=== PATIENT | female | born 1950 | race Caucasian/White ===

== ENCOUNTER 2016-06-04 10:18 | Inpatient (IN) | payer MEDICARE, BC ==
--- NOTE | ~2016-06-04 | DS ---
Discharge Summary [facility] [address] [place]. [address] NAME: INGRID KELLOGG : 52 STATUS : DIS IN PAT#: [id number] AGE: 65 ADM/REG DATE : 06/04/16 MR#: [id number] REPORT SERV DATE: 06/08/16 DICTATED BY: DATE: REPORT STATUS : Draft TRANSCRIBED BY: MODL DATE: 06/07/16 ADMISSION DATE: 06/04/2016 DISCHARGE DATE: 06/07/2016 DISCHARGE DIAGNOSES: 1. Confusion, transient, improved. 2. Word-finding difficulty/delayed verbal response, improved. 3. Chronic fatigue and weakness. 4. Type 2 diabetes mellitus. 5. Myelodysplastic syndrome. 6. Hypothyroidism. 7. Cirrhosis/fatty liver. 8. Obstructive sleep apnea. No continuous positive airway pressure since weight gain. 9. Depression. Remeron discontinued secondary to confusion. 10.Anorexia. CONSULTATIONS: Dr. Carson Moulton, [facility]. PERTINENT TESTS AND PROCEDURES: 1. CT of brain without contrast, 06/04/2016; impression, negative noncontrast CT exam of the brain. 2. Urinalysis, urine collected, 06/04/2016, result, negative. CHIEF COMPLAINT UPON ADMISSION: Confusion, weakness, and falls status post cycle 3 of chemotherapy. HOSPITAL COURSE: Please refer to history and physical dated 06/04/2016 provided by me for complete details of the patient's initial presentation upon admission and health history. Briefly, the patient is a 65-year-old female, who is under the outpatient care of Dr. Carson Moulton for management and treatment of MDS, transfusion-dependent. The patient presented to Dr. Moulton's office on 06/04 with complaints of four to five falls on the morning of admission in addition to word finding and verbal expression difficulty. The patient's spouse also reported the patient was experiencing transient confusion to include disorientation to time. The patient was referred for direct admission for further evaluation and treatment of worsening neurologic symptoms, status post chemotherapy. 1. Confusion, transient. This has improved since admission. Cause is most likely multifactorial to include side effect of chemotherapy, chronically low hemoglobin, and Ativan given routinely as a premed prior to blood transfusions. The patient also had recent delirium that was associated with Remeron that was initiated to treat depression. That medication has since been discontinued prior to this admission with noticeable improvement in mental state. Otherwise, no definitive source was identified during this admission. 2. Word-finding difficulty with delayed verbal response. Diagnostic workup included urinalysis and CT of brain, which were negative for acute processes. The patient's Discharge Summary [address] [address] NAME: INGRID KELLOGG : 52 STATUS : DIS IN PAT#: [id number] AGE: 65 ADM/REG DATE : 06/04/16 MR#: [id number] REPORT SERV DATE: 06/08/16 DICTATED BY: DATE: REPORT STATUS : Draft TRANSCRIBED BY: MODL DATE: 06/07/16 ammonia level was normal at 24. During this admission, the symptoms have continued to improve and are most noticeable after the patient is premedicated for blood transfusions. This is most likely multifactorial to include side effects of medication and history of depression. 3. Fatigue/weakness. This is chronic and most likely multifactorial to include possible side effects of chemotherapy, poor nutrition, depression, and sedentary lifestyle. Physical therapy was consulted for evaluation and treatment. The patient received extensive instructions on home for safety measures to assist in reducing fall risk. The patient was also provided with a rolling walker upon discharge and will have home healthcare physical therapy starting tomorrow. 4. MDS/transfusion-dependent. Upon admission, the patient's hemoglobin was reported to be 6.3. The patient received several units of packed red blood cells between admission date and day of discharge. The hemoglobin is now 7.2. The patient will follow up with Dr. Carson Moulton on Tuesday for further lab work. Platelets were reported to be 6 upon admission. The patient received one unit of platelets and count juliano to 15; however next morning, count returned below 10 and was reported to be 8. The patient's platelet count was 13 today status post transfusion yesterday. Oncology ordered one more unit of platelets to be given before discharge. The patient has no active signs or symptoms of bleeding. 5. Hypothyroidism. TSH and free T4 were checked during this admission. TSH was reported to be 2.950 and free T4 reported to be 1.3 for medication to be managed per primary care physician. 6. Type 2 diabetes mellitus. The patient's home medication is Victoza 1.8 mg subcu every morning. This medication was discontinued upon admission and the patient received Levemir 20 units subcu at bedtime, NovoLog 5 units before meals and at bedtime, and sliding scale level 3. The patient's blood glucoses have been elevated during this hospitalization secondary to the premedication prior to blood transfusions to include methylprednisolone 40 mg IV. The patient and her spouse were educated on recent hyperglycemic events and were instructed to check the patient's blood glucose three times daily and record and log. Instructions included contacting primary care provider if blood glucose is persistently remaining above 250 with return of home medication regimen. The patient indicated she did not want to add any additional diabetic medications to her home regimen at discharge. 7. Cirrhosis/fatty liver. The patient follows up outpatient with tufting supervisor at [facility]. 8. Obstructive sleep apnea. The patient has not been CPAP dependent since weight loss. 9. Depression. The patient recently tried a trial dose of Remeron, however, this was discontinued due to delirium. The patient affect has remained stable and there was no indication for psych consult during this admission. 10.Anorexia. This is related to disease process and treatment and possibly depression. The patient was educated to drink Glucerna nutritional supplement shakes two to three times daily as tolerated. DISCHARGE CONDITION: At the time of discharge, the patient was hemodynamically stable. DISCHARGED DIET: 2000 calorie ADA diet. Discharge Summary [address] [address] NAME: INGRID KELLOGG : 52 STATUS : DIS IN PAT#: [id number] AGE: 65 ADM/REG DATE : 06/04/16 MR#: [id number] REPORT SERV DATE: 06/08/16 DICTATED BY: DATE: REPORT STATUS : Draft TRANSCRIBED BY: MODL DATE: 06/07/16 DISCHARGE MEDICATIONS: 1. Levothyroxine 150 mcg tablet p.o. daily. 2. Jadenu 360 mg tablet p.o. daily. 3. Victoza 1.8 mg subcu every morning. 4. Tramadol 50 mg every four hours as needed. 5. Zofran 8 mg tablet every six hours as needed. DISCHARGE INSTRUCTIONS: 1. Follow up with Dr. Carson Moulton at [facility], 06/09/2016. 2. Follow up with primary care physician as needed for management of type 2 diabetes mellitus with hyperglycemia. 3. The patient and her were instructed to return to the emergency department for any acute onset of neurological change resulting in altered mental status, slurred speech, focal weakness, or syncopal/near-syncopal episodes. The patient was also instructed to monitor blood glucose daily and to contact primary care physician immediately if blood glucose is consistently running above 250. PRIMARY ONCOLOGIST: Dr. Carson Moulton, [facility]. JWH/MODL Megan Soliz NP-C / [id number] CC: MD Leigh Johnson II, M.D. Davey B. Daniel, M.D.
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
[~2016-06-04 10:18] MED LIST: AMARYL1 MG PO; AVAP150 PO; AVAPRO75 PO; JADENU PO; LEVOTHYROXIN125 MCG PO; LEVOTHYROXIN137 MCG PO; LEVOXYL137 MCG PO; MULTIVIT/MIN PO; MULTIVITAMI1 PO; T PO; VICTOZA18 MG/3 ML SC; VIDAZA IV; VITAMIN D2000 UNIT PO; VITE PO; VYTORIN 10/40 T1 TAB PO; WELLXL150 PO
[2016-06-04 12:58] LABS: MEAN CORPUS HGB CONC 32.8 g/dL (32.0-36.0); MEAN CORPUSCULAR HEMOGLOB 29.6 pg (26.0-34.0); RED CELL COUNT 2.13 10/6/uL (4.0-5.6)
[2016-06-04 13:01] LABS: WHITE BLOOD CELLS 0.9 10/3/uL (4.5-10.5)
[2016-06-04 13:02] LABS: HEMATOCRIT 19.2 % (36.0-48.0); HEMOGLOBIN 6.3 g/dL (12.0-16.0); MANUAL DIFF YES %; MEAN CORPUSCULAR VOLUME 90.1 fL (80-100); PLATELET COUNT 6 10/3/uL (150-400); RBC DISTRIBUTION WIDTH 13.7 % (12.0-16.0)
[2016-06-04 13:20] LABS: A/G RATIO 1.2 (0.7-1.9); ALBUMIN 2.9 G/DL (3.5-5.0); ALKALINE PHOSPHATASE 72 U/L (45-117); BUN (BLOOD UREA NITROGEN) 22 MG/DL (6-23); CALCIUM, SERUM 8.4 MG/DL (8.5-10.4); CHLORIDE, SERUM 105 MMOL/L (96-112); CO2 (CARBON DIOXIDE) 29 MMOL/L (24-34); CREATININE 0.97 MG/DL (0.55-1.02); FREE T4 1.34 NG/DL (0.76-1.46); GFR AFRICAN AMERICAN 72 ML/MIN (>=60); GFR NON AFRICAN AMERICAN 62 ML/MIN (>=60); GLOBULIN 2.4 G/DL (2.5-4.1); GLUCOSE, SERUM 269 MG/DL (60-99); PHOSPHORUS, SERUM 2.8 MG/DL (2.5-4.5); POTASSIUM, SERUM 4.3 MMOL/L (3.5-5.3); SGOT(AST) 65 U/L (5-40); SGPT(ALT) 152 U/L (5-65); SODIUM, SERUM 141 MMOL/L (135-148); TOTAL BILIRUBIN 2.8 MG/DL (0-1.2); TOTAL PROTEIN 5.3 G/DL (6.0-8.5)
[2016-06-04 13:33] LABS: LYMPHOCYTES 49 %; LYMPHOCYTES ABSOLUTE (CALC) 0.44 10/3/uL (0.67-4.30); MONOCYTES 3 %; MONOCYTES ABSOLUTE (CALC) 0.03 10/3/uL (0.21-1.20); NEUTROPHILS ABSOLUTE (CALC) 0.43 10/3/uL (2.02-8.40); SEGMENTED NEUTROPHIL (0) 48 %; TOTAL NUCLEATED CELLS 100
[2016-06-04 13:34] LABS: RBC MORPHOLOGY NORM (NORMAL)
[2016-06-04 14:51] LABS: GLYCOHEMOGLOBIN (HbA1c) 7.9 % (4.7-6.1)
[2016-06-04 14:59] LABS: WBC (NOT ORDERED) (RFLEX) 0 (0-5)
[2016-06-04 15:19] LABS: ASCORBIC ACID (UR NOT ORDER) NEG (NEG); BILIRUBIN, URINE NEGATIVE (NEG); KETONE, URINE NEGATIVE (NEG); LEUKOCYTE ESTERASE(NOT OR NEG (NEG)
[2016-06-04] MEDS ORDERED: ZOFRAN8 PO (15:53)
[2016-06-04] MEDS ORDERED: ULTRAM50 PO (15:53)
[2016-06-05 06:17] LABS: RBC DISTRIBUTION WIDTH 14.1 % (12.0-16.0); RED CELL COUNT 2.17 10/6/uL (4.0-5.6)
[2016-06-05 06:19] LABS: HEMATOCRIT 18.7 % (36.0-48.0); HEMOGLOBIN 6.5 g/dL (12.0-16.0); WHITE BLOOD CELLS 0.7 10/3/uL (4.5-10.5)
[2016-06-05 06:20] LABS: MANUAL DIFF YES %; MEAN CORPUS HGB CONC 34.8 g/dL (32.0-36.0); MEAN CORPUSCULAR VOLUME 86.2 fL (80-100); PLATELET COUNT 15 10/3/uL (150-400)
[2016-06-05 06:27] LABS: CALCIUM, SERUM 8.7 MG/DL (8.5-10.4); CHLORIDE, SERUM 102 MMOL/L (96-112); CO2 (CARBON DIOXIDE) 31 MMOL/L (24-34); CREATININE 1.06 MG/DL (0.55-1.02); GFR AFRICAN AMERICAN 64 ML/MIN (>=60); GFR NON AFRICAN AMERICAN 55 ML/MIN (>=60); GLUCOSE, SERUM 290 MG/DL (60-99); POTASSIUM, SERUM 4.3 MMOL/L (3.5-5.3); SODIUM, SERUM 143 MMOL/L (135-148)
[2016-06-05 06:29] LABS: BUN (BLOOD UREA NITROGEN) 28 MG/DL (6-23)
[2016-06-05 07:00] LABS: LYMPHOCYTES 30 %; LYMPHOCYTES ABSOLUTE (CALC) 0.21 10/3/uL (0.67-4.30); NEUTROPHILS ABSOLUTE (CALC) 0.49 10/3/uL (2.02-8.40); RBC MORPHOLOGY NORM (NORMAL); SEGMENTED NEUTROPHIL (0) 70 %; TOTAL NUCLEATED CELLS 100
[2016-06-06 06:24] LABS: MEAN CORPUS HGB CONC 35.4 g/dL (32.0-36.0); MEAN CORPUSCULAR VOLUME 84.8 fL (80-100); RBC DISTRIBUTION WIDTH 14.1 % (12.0-16.0)
[2016-06-06 06:25] LABS: HEMATOCRIT 19.5 % (36.0-48.0); HEMOGLOBIN 6.9 g/dL (12.0-16.0); PLATELET COUNT 8 10/3/uL (150-400); WHITE BLOOD CELLS 0.9 10/3/uL (4.5-10.5)
[2016-06-06 06:26] LABS: MANUAL DIFF YES %
[2016-06-06 06:32] LABS: BUN (BLOOD UREA NITROGEN) 30 MG/DL (6-23); CALCIUM, SERUM 8.8 MG/DL (8.5-10.4); CHLORIDE, SERUM 103 MMOL/L (96-112); CO2 (CARBON DIOXIDE) 32 MMOL/L (24-34); CREATININE 1.01 MG/DL (0.55-1.02); GFR AFRICAN AMERICAN 68 ML/MIN (>=60); GFR NON AFRICAN AMERICAN 59 ML/MIN (>=60); POTASSIUM, SERUM 4.1 MMOL/L (3.5-5.3); SODIUM, SERUM 143 MMOL/L (135-148)
[2016-06-06 06:33] LABS: GLUCOSE, SERUM 218 MG/DL (60-99)
[2016-06-06 07:20] LABS: LYMPHOCYTES 50 %; LYMPHOCYTES ABSOLUTE (CALC) 0.44 10/3/uL (0.67-4.30); NEUTROPHILS ABSOLUTE (CALC) 0.46 10/3/uL (2.02-8.40); SEGMENTED NEUTROPHIL (0) 45 %; TOTAL NUCLEATED CELLS 100
[2016-06-06 07:21] LABS: BAND NEUTROPHILS 3 %; MONOCYTES 2 %; RBC MORPHOLOGY NORM (NORMAL)
[2016-06-07 06:28] LABS: HEMOGLOBIN 7.2 g/dL (12.0-16.0); MEAN CORPUSCULAR HEMOGLOB 28.5 pg (26.0-34.0); MEAN CORPUSCULAR VOLUME 86.2 fL (80-100); MEAN PLATELET VOLUME 10.3 fL (9.2-13.0); RBC DISTRIBUTION WIDTH 14.5 % (12.0-16.0); RED CELL COUNT 2.53 10/6/uL (4.0-5.6)
[2016-06-07 06:29] LABS: HEMATOCRIT 21.8 % (36.0-48.0); MANUAL DIFF YES %; PLATELET COUNT 13 10/3/uL (150-400); WHITE BLOOD CELLS 0.8 10/3/uL (4.5-10.5)
[2016-06-07 06:43] LABS: BUN (BLOOD UREA NITROGEN) 34 MG/DL (6-23); CALCIUM, SERUM 8.8 MG/DL (8.5-10.4); CHLORIDE, SERUM 101 MMOL/L (96-112); CO2 (CARBON DIOXIDE) 32 MMOL/L (24-34); CREATININE 0.99 MG/DL (0.55-1.02); GFR AFRICAN AMERICAN 70 ML/MIN (>=60); GFR NON AFRICAN AMERICAN 60 ML/MIN (>=60); GLUCOSE, SERUM 232 MG/DL (60-99); SODIUM, SERUM 144 MMOL/L (135-148)
[2016-06-07 06:58] LABS: BAND NEUTROPHILS 2 %; LYMPHOCYTES 62 %; MONOCYTES 2 %; MONOCYTES ABSOLUTE (CALC) 0.02 10/3/uL (0.21-1.20); NEUTROPHILS ABSOLUTE (CALC) 0.29 10/3/uL (2.02-8.40); SEGMENTED NEUTROPHIL (0) 34 %; TOTAL NUCLEATED CELLS 50
[2016-06-07 06:59] LABS: POLYCHROMASIA 1+ (2-5/OIF) (0-1/OIF)
== END 2016-06-07 18:45 | disposition home health service (06) | DRG 917 ==
LOC: 4EA 10:18
PROVIDERS: Nurse Practitioner Family
PROC: 30233N0 Transfusion of Autologous Red Blood Cells into Peripheral Vein, Percutaneous Approach (ICD-10-PCS; principal; 2016-06-07)
DX: T43.025A Adverse effect of tetracyclic antidepressants, initial encounter (principal); D61.810 Antineoplastic chemotherapy induced pancytopenia; K74.60 Unspecified cirrhosis of liver; D46.9 Myelodysplastic syndrome, unspecified; I10 Essential (primary) hypertension; E11.9 Type 2 diabetes mellitus without complications; E03.9 Hypothyroidism, unspecified; G47.33 Obstructive sleep apnea (adult) (pediatric); F32.9 Major depressive disorder, single episode, unspecified; Z66 Do not resuscitate
CPT/HCPCS: 36415; 70450; 80048; 80053; 81001; 82140; 82962; 83036; 83735; 84100; 84439; 84443; 85025; 86850; 86900; 86901; 86920; 97162-GP; A9270-GY; G8978-CK-GP; G8979-CJ-GP; J2920; P9037; P9040

== ENCOUNTER 2016-07-12 10:14 | Inpatient (IN) | payer MEDICARE, BC ==
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
--- NOTE | ~2016-07-12 | DS ---
Discharge Summary [facility] [address] [place]. [address] NAME: INGRID KELLOGG : 52 STATUS : DIS IN PAT#: [id number] AGE: 66 ADM/REG DATE : 07/13/16 MR#: [id number] REPORT SERV DATE: 07/20/16 DICTATED BY: DATE: REPORT STATUS : Draft TRANSCRIBED BY: MODL DATE: 07/16/16 ADMISSION DATE: 07/12/2016 DISCHARGE DATE: 07/16/2016 DISCHARGE DIAGNOSES: 1. Myelodysplastic syndrome. 2. Pancytopenia/neutropenia. 3. Increased liver enzymes. 4. Chronic transient confusion. 5. Type 2 diabetes. 6. Moderate malnutrition. CONSULTATIONS: Dr. Carson Moulton, [facility]. PERTINENT TESTS AND PROCEDURES: 1. Urinalysis specimen collected 07/14/2016, result negative. 2. 7 units packed red blood cells and 3 units of platelets transfused during this admission. CHIEF COMPLAINT UPON ADMISSION: Increased confusion and shortness of breath with ambulation. Briefly, the patient is a 66-year-old female with a history of a myelodysplastic syndrome transfusion dependent, type 2 diabetes, cirrhosis of the liver/fatty infiltration, overload, and chronic transient confusion. The patient presented to [facility]'s office on 07/12/2016 for followup visit. Laboratory data reported hemoglobin of 4.1 and hematocrit of 12.0 with a platelet count of 2. The patient was referred to [facility] for direct admission. She received three units of packed red blood cells and one unit of platelets. During this admission, the patient had decreased favorable response to transfusions with unclear etiology. The patient received a total of 7 units packed red blood cells and 3 units of platelets during this admission. At this time, hemoglobin and hematocrit are stable. The patient received one unit of platelets just prior to discharge today and labs will be recheck on Tuesday at [facility]. 1. Myelodysplastic syndrome. Upon admission, the patient's hemoglobin was reported to be 3.3. The patient received 3 units of packed red blood cells; however, hemoglobin increased only moderately to 5.6. The patient received a total of 7 units packed red blood cells during this admission, and at the time of discharge, hemoglobin and hematocrit are stable at 7.8 and 22.6. The patient is transfusion dependent, however, had a decreased favorable response to transfusions during this admission. There was no evidence of hemolysis and direct Akosua test was negative. Concern for decreased response to azacitidine. Bone marrow biopsy was obtained on 07/15/2016 for evaluation for AML or other changes. Preliminary verbal report was called to Dr. Carson Moulton at [facility], which noted no leukemia. The patient will follow up with Dr. Carson Moulton on 07/19/2016, for further evaluation and labs. Discharge Summary [address] [address] NAME: INGRID KELLOGG : 52 STATUS : DIS IN PAT#: [id number] AGE: 66 ADM/REG DATE : 07/13/16 MR#: [id number] REPORT SERV DATE: 07/20/16 DICTATED BY: DATE: REPORT STATUS : Draft TRANSCRIBED BY: MODL DATE: 07/16/16 2. Pancytopenia/neutropenia. The patient's white blood count has remained between 0.5 and 0.9 during this admission. Absolute neutrophil count 200. This is secondary to myelodysplastic syndrome and also likely related to side affects of azacitidine. The patient will continue to receive transfusions as needed on an outpatient basis managed by [facility]. 3. Increased liver enzymes. This is multifactorial to include history of cirrhosis and fatty liver infiltration and iron overload. Continue home dose of Jadenu. 4. Chronic transient confusion. This is multifactorial to include chronically low hemoglobin requiring multiple transfusions. Urinalysis was negative for infection. Upon discharge, the patient was more awake, alert, and oriented x3 and exhibited improvement with word-finding difficulty. 5. Type 2 diabetes. Blood glucose has remained controlled. Continue current home regimen. 6. Moderate malnutrition. This is secondary to chronic illness. The patient and her family members were educated on benefits related to consuming 4 to 6 very small meals with calorie fortification throughout each day. In addition to nutritional shakes three times daily, continue Marinol and antiemetics as needed. DISCHARGE CONDITION: At the time of discharge, the patient is hemodynamically stable. DISCHARGE DIET: Regular diet with nutritional shake supplementation three times daily. DISCHARGE MEDICATIONS: 1. Marinol 2.5 mg tablet p.o. twice daily. 2. Jadenu 360 mg tablet p.o. daily. 3. Levothyroxine 137 mcg p.o. daily. 4. MiraLAX 17 g p.o. daily, hold for diarrhea. 5. Tylenol 325 mg tablet, take two tablets p.o. every four hours as needed. 6. Zofran 8 mg tablet p.o. every six hours as needed. 7. Ultram 50 mg tablet p.o. every four hours as needed. 8. Victoza 1.8 mg subcu every morning. DISCHARGE INSTRUCTIONS: Follow up with Dr. Carson Moulton's office on 07/20/2016, for labs. The patient and her family members were instructed to monitor the patient closely for signs and symptoms of low hemoglobin to include increased shortness of breath, dyspnea on exertion, and extreme fatigue. The patient was also educated on monitoring closely for signs and symptoms of bleeding in the setting of low platelets. The patient and family advised to return to the emergency room for any deviations in health state as compared to baseline at the time of discharge. ZIGGY/ASHLEY Megan Soliz NP-C Discharge Summary [address] [address] NAME: INGRID KELLOGG : 52 STATUS : DIS IN PAT#: [id number] AGE: 66 ADM/REG DATE : 07/13/16 MR#: [id number] REPORT SERV DATE: 07/20/16 DICTATED BY: DATE: REPORT STATUS : Draft TRANSCRIBED BY: ASHLEY DATE: 07/16/16 / [id number] CC: MD THAIS Johnson II, KIMBERLY
[~2016-07-12 10:14] MED LIST changes: +ULTRAM50 PO; +ZOFRAN8 PO
[2016-07-12 12:55] LABS: MEAN CORPUS HGB CONC 33.3 g/dL (32.0-36.0); MEAN CORPUSCULAR HEMOGLOB 29.5 pg (26.0-34.0); MEAN CORPUSCULAR VOLUME 88.4 fL (80-100); RBC DISTRIBUTION WIDTH 14.3 % (12.0-16.0); RED CELL COUNT 1.12 10/6/uL (4.0-5.6); WHITE BLOOD CELLS 0.5 10/3/uL (4.5-10.5)
[2016-07-12 12:56] LABS: HEMATOCRIT 9.9 % (36.0-48.0); HEMOGLOBIN 3.3 g/dL (12.0-16.0); MANUAL DIFF YES %; PLATELET COUNT 2 10/3/uL (150-400)
[2016-07-12 13:12] LABS: A/G RATIO 1.3 (0.7-1.9); ALBUMIN 3.2 G/DL (3.5-5.0); ALKALINE PHOSPHATASE 71 U/L (45-117); CHLORIDE, SERUM 104 MMOL/L (96-112); CO2 (CARBON DIOXIDE) 31 MMOL/L (24-34); CREATININE 1.28 MG/DL (0.55-1.02); GFR AFRICAN AMERICAN 51 ML/MIN (>=60); GFR NON AFRICAN AMERICAN 44 ML/MIN (>=60); GLOBULIN 2.5 G/DL (2.5-4.1); GLUCOSE, SERUM 244 MG/DL (60-99); POTASSIUM, SERUM 4.4 MMOL/L (3.5-5.3); SGOT(AST) 33 U/L (5-40); SGPT(ALT) 86 U/L (5-65); SODIUM, SERUM 140 MMOL/L (135-148); TOTAL PROTEIN 5.7 G/DL (6.0-8.5)
[2016-07-12 13:13] LABS: BUN (BLOOD UREA NITROGEN) 30 MG/DL (6-23); CALCIUM, SERUM 9.9 MG/DL (8.5-10.4)
[2016-07-12 13:17] LABS: LYMPHOCYTES 39 %; NEUTROPHILS ABSOLUTE (CALC) 0.31 10/3/uL (2.02-8.40); SEGMENTED NEUTROPHIL (0) 61 %; TOTAL NUCLEATED CELLS 100
[2016-07-12 13:18] LABS: RBC MORPHOLOGY NORM (NORMAL)
[2016-07-12] MEDS ORDERED: MARI2.5 PO (17:14)
[2016-07-13 04:58] LABS: HEMATOCRIT 16.2 % (36.0-48.0); HEMOGLOBIN 5.6 g/dL (12.0-16.0)
[2016-07-13 05:25] LABS: MEAN CORPUSCULAR HEMOGLOB 28.6 pg (26.0-34.0); MEAN PLATELET VOLUME 10.5 fL (9.2-13.0); RBC DISTRIBUTION WIDTH 15.3 % (12.0-16.0)
[2016-07-13 05:29] LABS: MEAN CORPUSCULAR VOLUME 84.1 fL (80-100); PLATELET COUNT 17 10/3/uL (150-400); RED CELL COUNT 1.89 10/6/uL (4.0-5.6); WHITE BLOOD CELLS 0.9 10/3/uL (4.5-10.5)
[2016-07-13 05:31] LABS: MANUAL DIFF YES %
[2016-07-13 06:40] LABS: BAND NEUTROPHILS 6 %; LYMPHOCYTES 28 %; LYMPHOCYTES ABSOLUTE (CALC) 0.25 10/3/uL (0.67-4.30); MONOCYTES 2 %; MONOCYTES ABSOLUTE (CALC) 0.02 10/3/uL (0.21-1.20); NEUTROPHILS ABSOLUTE (CALC) 0.63 10/3/uL (2.02-8.40); SEGMENTED NEUTROPHIL (0) 64 %; TOTAL NUCLEATED CELLS 50
[2016-07-13 06:41] LABS: POLYCHROMASIA 1+ (2-5/OIF) (0-1/OIF); TOXIC GRANULATION 1+
[2016-07-13 15:44] LABS: HEMATOCRIT 20.9 % (36.0-48.0); HEMOGLOBIN 7.5 g/dL (12.0-16.0)
[2016-07-14 04:31] LABS: HEMATOCRIT 18.4 % (36.0-48.0); HEMOGLOBIN 6.3 g/dL (12.0-16.0); MEAN CORPUS HGB CONC 34.2 g/dL (32.0-36.0); MEAN CORPUSCULAR HEMOGLOB 29.3 pg (26.0-34.0); MEAN CORPUSCULAR VOLUME 85.6 fL (80-100); MEAN PLATELET VOLUME 9.9 fL (9.2-13.0); PLATELET COUNT 7 10/3/uL (150-400); RBC DISTRIBUTION WIDTH 14.9 % (12.0-16.0); RED CELL COUNT 2.15 10/6/uL (4.0-5.6); WHITE BLOOD CELLS 0.6 10/3/uL (4.5-10.5)
[2016-07-14 04:32] LABS: MANUAL DIFF YES %
[2016-07-14 04:46] LABS: A/G RATIO 1.4 (0.7-1.9); ALKALINE PHOSPHATASE 60 U/L (45-117); BUN (BLOOD UREA NITROGEN) 33 MG/DL (6-23); CHLORIDE, SERUM 110 MMOL/L (96-112); CO2 (CARBON DIOXIDE) 28 MMOL/L (24-34); CREATININE 0.79 MG/DL (0.55-1.02); GFR AFRICAN AMERICAN 91 ML/MIN (>=60); GFR NON AFRICAN AMERICAN 79 ML/MIN (>=60); GLOBULIN 2.2 G/DL (2.5-4.1); POTASSIUM, SERUM 3.9 MMOL/L (3.5-5.3); SGOT(AST) 40 U/L (5-40); SGPT(ALT) 77 U/L (5-65); SODIUM, SERUM 145 MMOL/L (135-148); TOTAL PROTEIN 5.2 G/DL (6.0-8.5)
[2016-07-14 04:48] LABS: LYMPHOCYTES 60 %; LYMPHOCYTES ABSOLUTE (CALC) 0.36 10/3/uL (0.67-4.30); NEUTROPHILS ABSOLUTE (CALC) 0.24 10/3/uL (2.02-8.40); SEGMENTED NEUTROPHIL (0) 40 %; TOTAL NUCLEATED CELLS 10
[2016-07-14 04:50] LABS: RBC MORPHOLOGY NORM (NORMAL)
[2016-07-14 04:51] LABS: CALCIUM, SERUM 8.7 MG/DL (8.5-10.4); GLUCOSE, SERUM 173 MG/DL (60-99)
[2016-07-14 06:56] LABS: ASCORBIC ACID (UR NOT ORDER) NEG (NEG); BILIRUBIN, URINE NEGATIVE (NEG); KETONE, URINE NEGATIVE (NEG); LEUKOCYTE ESTERASE(NOT OR NEG (NEG); WBC (NOT ORDERED) (RFLEX) 1 (0-5)
[2016-07-14 20:17] LABS: HEMATOCRIT 23.9 % (36.0-48.0); HEMOGLOBIN 8.3 g/dL (12.0-16.0)
[2016-07-15 04:41] LABS: HEMATOCRIT 22.1 % (36.0-48.0); HEMOGLOBIN 7.8 g/dL (12.0-16.0); MEAN CORPUS HGB CONC 35.3 g/dL (32.0-36.0); MEAN CORPUSCULAR HEMOGLOB 29.9 pg (26.0-34.0); MEAN CORPUSCULAR VOLUME 84.7 fL (80-100); RBC DISTRIBUTION WIDTH 14.8 % (12.0-16.0)
[2016-07-15 04:42] LABS: PLATELET COUNT 13 10/3/uL (150-400); RED CELL COUNT 2.61 10/6/uL (4.0-5.6); WHITE BLOOD CELLS 0.5 10/3/uL (4.5-10.5)
[2016-07-15 04:43] LABS: MANUAL DIFF YES %
[2016-07-15 04:47] LABS: A/G RATIO 1.4 (0.7-1.9); ALKALINE PHOSPHATASE 63 U/L (45-117); CALCIUM, SERUM 8.7 MG/DL (8.5-10.4); CHLORIDE, SERUM 110 MMOL/L (96-112); CO2 (CARBON DIOXIDE) 28 MMOL/L (24-34); GFR AFRICAN AMERICAN 90 ML/MIN (>=60); GFR NON AFRICAN AMERICAN 77 ML/MIN (>=60); GLOBULIN 2.2 G/DL (2.5-4.1); GLUCOSE, SERUM 152 MG/DL (60-99); POTASSIUM, SERUM 3.6 MMOL/L (3.5-5.3); SGOT(AST) 47 U/L (5-40); SGPT(ALT) 83 U/L (5-65); SODIUM, SERUM 146 MMOL/L (135-148); TOTAL BILIRUBIN 3.6 MG/DL (0-1.2); TOTAL PROTEIN 5.2 G/DL (6.0-8.5)
[2016-07-15 04:48] LABS: BUN (BLOOD UREA NITROGEN) 28 MG/DL (6-23)
[2016-07-15 05:11] LABS: LYMPHOCYTES 69 %; LYMPHOCYTES ABSOLUTE (CALC) 0.35 10/3/uL (0.67-4.30); MONOCYTES 2 %; MONOCYTES ABSOLUTE (CALC) 0.01 10/3/uL (0.21-1.20); NEUTROPHILS ABSOLUTE (CALC) 0.15 10/3/uL (2.02-8.40); SEGMENTED NEUTROPHIL (0) 29 %; TOTAL NUCLEATED CELLS 100
[2016-07-15 05:18] LABS: RBC MORPHOLOGY NORM (NORMAL)
[2016-07-15 10:47] LABS: RETICULOCYTE COUNT 0.3 % (0.5-2.9); RETICULOCYTE COUNT ABSOLUTE 8.1 10/3/uL (20.2-119.8)
[2016-07-16 05:10] LABS: HEMATOCRIT 21.7 % (36.0-48.0); HEMOGLOBIN 7.5 g/dL (12.0-16.0); MEAN CORPUS HGB CONC 34.6 g/dL (32.0-36.0); MEAN CORPUSCULAR HEMOGLOB 30.1 pg (26.0-34.0); MEAN CORPUSCULAR VOLUME 87.1 fL (80-100); MEAN PLATELET VOLUME 10.2 fL (9.2-13.0); RBC DISTRIBUTION WIDTH 14.8 % (12.0-16.0); RED CELL COUNT 2.49 10/6/uL (4.0-5.6)
[2016-07-16 05:13] LABS: MANUAL DIFF YES %; PLATELET COUNT 9 10/3/uL (150-400); WHITE BLOOD CELLS 0.5 10/3/uL (4.5-10.5)
[2016-07-16 05:24] LABS: CALCIUM, SERUM 8.2 MG/DL (8.5-10.4); CHLORIDE, SERUM 111 MMOL/L (96-112); CO2 (CARBON DIOXIDE) 30 MMOL/L (24-34); CREATININE 0.72 MG/DL (0.55-1.02); GFR AFRICAN AMERICAN 102 ML/MIN (>=60); GFR NON AFRICAN AMERICAN 88 ML/MIN (>=60); GLUCOSE, SERUM 133 MG/DL (60-99); SODIUM, SERUM 145 MMOL/L (135-148)
[2016-07-16 05:28] LABS: BUN (BLOOD UREA NITROGEN) 21 MG/DL (6-23)
[2016-07-16 06:52] LABS: LYMPHOCYTES 50 %; LYMPHOCYTES ABSOLUTE (CALC) 0.25 10/3/uL (0.67-4.30); MONOCYTES 10 %; MONOCYTES ABSOLUTE (CALC) 0.05 10/3/uL (0.21-1.20); RBC MORPHOLOGY NORM (NORMAL); SEGMENTED NEUTROPHIL (0) 40 %; TOTAL NUCLEATED CELLS 10
[2016-07-16 14:24] LABS: HEMATOCRIT 22.6 % (36.0-48.0); HEMOGLOBIN 7.8 g/dL (12.0-16.0)
[2016-07-16] MEDS ORDERED: MIRALAX POWDER1 PKT PO (18:27)
[2016-07-16] MEDS ORDERED: T PO (18:28)
== END 2016-07-16 19:31 | disposition home or self-care (01) | DRG 811 ==
LOC: 4EA 10:14
PROVIDERS: Internal Medicine; Internal Medicine Hematology & Oncology; Nurse Practitioner Family
PROC: 30233N1 Transfusion of Nonautologous Red Blood Cells into Peripheral Vein, Percutaneous Approach (ICD-10-PCS; principal; 2016-07-12)
PROC: 30233R0 Transfusion of Autologous Platelets into Peripheral Vein, Percutaneous Approach (ICD-10-PCS; 2016-07-12)
DX: D46.9 Myelodysplastic syndrome, unspecified (principal); D61.810 Antineoplastic chemotherapy induced pancytopenia; E44.0 Moderate protein-calorie malnutrition; I10 Essential (primary) hypertension; D63.0 Anemia in neoplastic disease; E11.9 Type 2 diabetes mellitus without complications; E03.9 Hypothyroidism, unspecified; Z66 Do not resuscitate; Z68.25 Body mass index [BMI] 25.0-25.9, adult
CPT/HCPCS: 36415; 80048; 80053; 81001; 82140; 82962; 83615; 83735; 85014; 85018; 85025; 85045; 86850; 86880; 86900; 86901; 86920; 88305; 88313; 88341; 88342; 88360; A9270-GY; J1170; J1940; J2920; J3475; P9037; P9040

== ENCOUNTER 2016-07-25 09:28 | Inpatient (IN) | payer MEDICARE, BC ==
--- NOTE | ~2016-07-25 | EEG ---
Electroencephalogram [facility] [address] [place]. [address] NAME: INGRID KELLOGG : 52 STATUS : DIS IN PAT#: [id number] AGE: 66 ADM/REG DATE : 07/25/16 MR#: [id number] REPORT SERV DATE: 08/10/16 DICTATED BY: HELEN COTTO DATE: 08/10/16 REPORT STATUS : Draft TRANSCRIBED BY: MODL DATE: 08/10/16 ELECTROENCEPHALOGRAPHY REPORT. REQUESTING PHYSICIANS: Dr. Carson Moulton and Dr. Stalin Vizcarra M.D. INTERPRETING PHYSICIAN: Helen Cotto MD. AGE: 66. REASON FOR EEG: EEG was done to rule out seizures. History of myelodysplastic syndrome, on chemotherapy. 23 surface electrodes, 10-20 international placement was used. The patient was noted to be awake, drowsy, asleep, and restless throughout the recording. During the awake portion of the recording, the patient's background activity appeared to show moderately well-organized posterior 8 to 9 cycles per second. This activity attenuated with the eye opening maneuvers. The patient appeared to fall asleep frequently. No epileptiform or paroxysmal activity was seen during this study. The patient appeared extremely drowsy throughout the entire recording. Photic stimulation did not bring out additional abnormalities. electronic device monitor showed sinus rhythm, rate of approximately 74 beats per minute. No driving response was seen during photic stimulation. IMPRESSION: THIS EEG IS MILDLY ABNORMAL WITH DIFFUSE SLOWING OF CEREBRAL ACTIVITY AND PRESENCE OF PERSISTENT SOMNOLENCE. HOWEVER, NO PAROXYSMAL OR EPILEPTIFORM ACTIVITY WAS SEEN DURING THIS RECORDING. NO SIGNIFICANT ASYMMETRY OF CEREBRAL ACTIVITY WAS PRESENT. CLINICAL CORRELATION IS RECOMMENDED. CARLOTTAA/ASHLEY Helen Cotto MD / [id number] CC: Carson Moulton M.D.
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
--- NOTE | ~2016-07-25 | CN ---
Consultation Report [facility] [address] [place]. [address] NAME: INGRID KELLOGG : 52 STATUS : ADM IN PAT#: [id number] AGE: 66 ADM/REG DATE : 07/25/16 MR#: [id number] REPORT SERV DATE: 07/27/16 DICTATED BY: STALIN VIZCARRA DATE: 07/26/16 REPORT STATUS : Draft TRANSCRIBED BY: MODAmna DATE: 07/26/16 DATE OF CONSULTATION: 07/26/2016 IMPRESSION: 1. Metabolic encephalopathy. 2. Sepsis. 3. Rule out meningitis versus status epilepticus. 4. Urinary tract infection from Klebsiella pneumonia. 5. Cirrhosis of the liver with fatty infiltration. 6. Type 2 diabetes mellitus. 7. Myelodysplastic syndrome, currently on chemo by Dr. Carson Moulton. 8. Pancytopenia due to myelodysplastic syndrome. 9. Biopsy-proven sarcoidosis in the past. 10.Obstructive sleep apnea. 11.Hypertension. 12.Depression. 13.Hyperlipidemia. 14.Hypothyroidism. PLAN: Avoid sedatives, especially Ativan, Benadryl, or any other types. Discontinue Levaquin as this may precipitate seizures or cause more delirium. We will start patient on cefepime and vancomycin in light that there may be a high possibility of meningitis in this neutropenic patient. We will ask Neurology to see the patient in consultation. We will aggressively do fluid resuscitation including fluid bolus and then continue fluid at a high rate. We will check labs including lactate level, procalcitonin level, and other labs. We will go ahead and transfuse six packs of platelets in anticipation if lumbar puncture will be needed. We will order a stat EEG. This patient remains a full code. I have discussed her care with the daughter at the bedside. She understands and agrees at this time. We thank you for this consultation. We will continue to follow with you. HISTORY OF PRESENT ILLNESS: The patient is a 66-year-old female who is admitted to the Oncology Service who has known history of myelodysplastic syndrome and had a urinary tract infection which is identified as Klebsiella which is pansensitive. The patient was placed on Levaquin. This patient has had off and on delirium with changes in mental status. This patient was here nine days ago with a significantly low hemoglobin, had multiple transfusions. Her delirium seemed to have improved. CT was done in 05/2016, which was negative. No further neurological workup has been initiated. Daughter reports that she is having significant problems with confusion at times, stammering, murmuring, and she is not coherent. She has never had hallucinations. There has been no headaches and no visual deficits. There has not been any nausea, vomiting, or other constitutional symptoms. REVIEW OF SYSTEMS: Otherwise negative. PAST MEDICAL HISTORY: Significant for myelodysplastic syndrome; hypertension; type 2 Consultation Report [address] [place]. [address] NAME: INGRID KELLOGG : 52 STATUS : ADM IN [facility]#: [id number] AGE: 66 ADM/REG DATE : 07/25/16 MR#: [id number] REPORT SERV DATE: 07/27/16 DICTATED BY: STALIN VIZCARRA DATE: 07/26/16 REPORT STATUS : Draft TRANSCRIBED BY: ASHLEY DATE: 07/26/16 diabetes mellitus; hypothyroidism; hyperlipidemia; cirrhosis of the liver due to fatty infiltration; obstructive sleep apnea, not on CPAP due to weight loss; splenomegaly. She has a longstanding history of depression for which she takes medications. She has biopsy- proven sarcoid. She had transfusion dependence due to MDS and transfusion reaction. PAST SURGICAL HISTORY: Significant for Port-A-Cath placement, cholecystectomy, surgical repair of the right hip and femur. SOCIAL HISTORY: This patient has been for 40+ years. She is currently unemployed, never had history of use of tobacco, occasional use of alcohol. No use of illicit substances. FAMILY HISTORY: Mother and father are . Positive for lung cancer, diabetes, breast cancer, and Alzheimer-type dementia. PHYSICAL EXAMINATION: GENERAL: White female, lying in bed, very lethargic, but arousal since we have given her a fluid bolus. VITAL SIGNS: Blood pressure of 115/56, heart rate of 89. Temp is a 103. Saturation of 92% on room air. HEENT: Head is normocephalic, atraumatic. Pupils are equal, round, and reactive to light. Extraocular muscles are intact. Sclerae are icteric. Conjunctivae are normal. Oropharynx, tongue protrusion midline. Uvula midline. Icterus of the mucous membranes are noted. NECK: Supple. No jugular venous distention. No carotid bruits or thyromegaly is appreciated. There is a radiating murmur from the heart into the right neck. HEART: Tachycardia. There is a 3/6 systolic murmur best heard in the second intercostal space, left parasternal border. PMI nondisplaced. No rubs or gallops are noted. LUNGS: Fairly clear to auscultation both anteriorly and posteriorly without rales, rhonchi, wheezing, or consolidation. ABDOMEN: Soft, nontender, good bowel sounds. No rebound or guarding. No organomegaly except spleen tip is felt in the left upper quadrant. EXTREMITIES: Without cyanosis, clubbing, or edema. Jaundiced skin is noted. LABS: No labs done today. Sodium 138, potassium 3.9, chloride 106, bicarb 26, BUN 28, creatinine 1.01, glucose of 241. Total protein 5.6, albumin is 3.0, total bilirubin is 3.3, ALT is 181, AST is 119. Ammonia level on 07/26/2016 was 24. No lactate level was done on this admission. White count is 0.5, hemoglobin of 8.5, hematocrit 24.5, and platelet count is 24,000. 11% bandemia was noted yesterday. Urinalysis done on 07/23/2016 showed small amount of leukocyte esterase, 16 wbc's, many bacteria. Urine cultures done on 07/23/2016 shows Klebsiella pneumonia that is pansensitive. Blood cultures are pending. Chest x-ray is pending. Once again, we thank you for this consultation. We will follow with you. Consultation Report [address] [place]. [address] NAME: INGRID KELLOGG : 52 STATUS : ADM IN [facility]#: [id number] AGE: 66 ADM/REG DATE : 07/25/16 MR#: [id number] REPORT SERV DATE: 07/27/16 DICTATED BY: STALIN VIZCARRA DATE: 07/26/16 REPORT STATUS : Draft TRANSCRIBED BY: ASHLEY DATE: 07/26/16 OLENA/ASHLEY Stalin Vizcarra M.D. / [id number] CC: Carson Moulton M.D.
--- NOTE | ~2016-07-25 | DS ---
Discharge Summary [facility] [address] [place]. [address] NAME: INGRID KELLOGG : 52 STATUS : DIS IN PAT#: [id number] AGE: 66 ADM/REG DATE : 07/25/16 MR#: [id number] REPORT SERV DATE: 08/11/16 DICTATED BY: CARSON MOULTON DATE: 08/10/16 REPORT STATUS : Draft TRANSCRIBED BY: ASHLEY DATE: 08/10/16 Data Collection from hospitalization DISCHARGE DIAGNOSIS(ES): 1. Myelodysplastic syndrome. 2. Metabolic encephalopathy. 3. Urinary tract infection/sepsis/febrile neutropenia. 4. Right lower lobe infiltrate/questionable pneumonia. 5. Pancytopenia. 6. Type 2 diabetes mellitus. 7. History of cirrhosis. 8. Essential hypertension. 9. Hyperlipidemia. 10.Anxiety disorder. 11.Obesity. CONSULTATIONS: Stalin Vizcarra M.D. and Lesa Crawford DNP, [facility]. PROCEDURES PERFORMED: MRI of the brain with and without contrast, 07/26/2016. MEDICATIONS: Vitamin D3 5000 units daily, Monodox 100 mg twice a day, Marinol 2.5 mg three times a day as needed, levothyroxine 137 mcg daily, Victoza 1.8 mg subcutaneously every morning, multivitamins with minerals one tablet every morning, Zofran 8 mg every six hours as needed, MiraLAX powder 17 g daily as needed, Seroquel 25 mg at bedtime, Ultram 50 mg every four hours as needed, and Jadenu 360 mg daily. CONDITION AT DISCHARGE: Stable. DISPOSITION: The patient was discharged home to be followed by home health care on a regular diet with activities as instructed. She would follow up with me on 08/03/2016. HOSPITAL COURSE: This is a 66-year-old female who has myelodysplastic syndrome. She had presented with severe anemia with biopsy showing ring sideroblast and dysplasia. She had been diagnosed with cirrhosis. She has slowly lost 30 pounds with improvement of her liver function tests. She had been diagnosed with fatty liver. The patient had been seen on Tuesday prior to admission for delirium. She had been transfused. Urinalysis showed a few white blood cells but cultures came back showing Klebsiella urinary tract infection. She had had much more fatigue. She had severe confusion. She had not had any fevers at home, but here her temperature was found to be 100.8. She had continued to decline over the past month. She was admitted to the hospital at this time for further evaluation and treatment. Upon admission, she had not responded to her treatment with azacitidine. There were no signs of progression of AML. I did feel that she was worsening. It was felt that it would be difficult to continue treatment. Transplant was not possible. Her delirium was felt likely related to her urinary tract infection. The patient is a DNR code status. Following day, she was seen by Dr. Stalin Vizcarra, who then placed on Levaquin. She had had on and off delirium with changes in her mental status. She had been here nine days prior to this admission with a significantly low hemoglobin and had undergone multiple transfusions. Her Discharge Summary [address] [address] NAME: INGRID KELLOGG : 52 STATUS : DIS IN PAT#: [id number] AGE: 66 ADM/REG DATE : 07/25/16 MR#: [id number] REPORT SERV DATE: 08/11/16 DICTATED BY: CARSON MOULTON DATE: 08/10/16 REPORT STATUS : Draft TRANSCRIBED BY: ASHLEY DATE: 08/10/16 delirium seems to have improved. The patient's daughter said there have been significant problems with confusion at times, stammering, murmuring, and she was not coherent. The patient does have metabolic encephalopathy and sepsis. We would rule out meningitis versus status epilepticus. We would avoid sedative, especially Ativan, Benadryl, or any other type. Levaquin was going to stop as this may precipitate seizures or cause more delirium. The patient will be started on cefepime and vancomycin. In light of this, there may be a high possibility of meningitis in this neutropenic patient. Aggressive fluid resuscitation would be provided. She was transfused a six-pack of platelets. Stat EEG was requested. She was also seen by Lesa Crawford. Her assessment included acute on chronic metabolic encephalopathy of unknown etiology, most likely multifactorial in nature. The patient is reportedly worse immediately after chemotherapy and this could possibly be post chemotherapy cognitive impairment, and it was felt that she may need to undergo a lumbar puncture and EEG imaging study was requested. An MRI of the brain with and without contrast was performed. Electroencephalogram was also performed. The patient did have neutropenic fever. Vancomycin was continued. On 07/27/2016, she was markedly more lucid. Her fevers had improved. She had no lower extremity edema. Echocardiogram was performed. She did have a cough. Blood sugars were fairly controlled. The MRI of the brain showed no acute change. White blood cell count was 0.3. It was felt that the acute encephalopathy was most likely due to the urinary tract infection. Lumbar puncture is being canceled. There were no signs or symptoms of meningitis. On 07/28/2016, she had some difficulty with her blood sugars. She did have some nausea. Sliding scale insulin was increased while she was on steroids. Antibiotics were continued. The next day, discharge planning was performed. She was still weak. Her lungs were clear. She was evaluated by Physical Therapy. She had some intermittent confusion and agitation during the night. She was going to be changed to oral antibiotics. On 07/30/2016, her strength had improved. She did have ongoing delirium. She was given one unit of packed red blood cells and one unit of platelets. Discharge instructions were given. Due to her improved and stable condition, she was discharged home to be followed by home health care with the above-stated instructions. Information collected by: Amber Peterson I submit the above information as my discharge summary. TG/MODL Carson Moulton M.D. / [id number] CC: Adonis Matthews M.D.
[~2016-07-25 09:28] MED LIST changes: +MARI2.5 PO; +MIRALAX POWDER1 PKT PO
[2016-07-25] MEDS ORDERED: MULTIVIT/MIN PO (10:14)
[2016-07-25] MEDS ORDERED: VITAMIN D31000 UNIT PO (10:15)
[2016-07-25 11:09] LABS: HEMATOCRIT 21.3 % (36.0-48.0); MEAN CORPUSCULAR HEMOGLOB 28.8 pg (26.0-34.0); MEAN CORPUSCULAR VOLUME 88.8 fL (80-100); MEAN PLATELET VOLUME 13.3 fL (9.2-13.0); RBC DISTRIBUTION WIDTH 14.6 % (12.0-16.0)
[2016-07-25 11:10] LABS: HEMOGLOBIN 6.9 g/dL (12.0-16.0); MEAN CORPUS HGB CONC 32.4 g/dL (32.0-36.0); PLATELET COUNT 25 10/3/uL (150-400); WHITE BLOOD CELLS 0.4 10/3/uL (4.5-10.5)
[2016-07-25 11:15] LABS: MANUAL DIFF YES %
[2016-07-25 11:25] LABS: A/G RATIO 1.2 (0.7-1.9); CHLORIDE, SERUM 106 MMOL/L (96-112); CO2 (CARBON DIOXIDE) 26 MMOL/L (24-34); CREATININE 1.01 MG/DL (0.55-1.02); GFR AFRICAN AMERICAN 68 ML/MIN (>=60); GFR NON AFRICAN AMERICAN 58 ML/MIN (>=60); GLOBULIN 2.6 G/DL (2.5-4.1); POTASSIUM, SERUM 3.9 MMOL/L (3.5-5.3); SGOT(AST) 119 U/L (5-40); SGPT(ALT) 181 U/L (5-65); SODIUM, SERUM 138 MMOL/L (135-148); TOTAL PROTEIN 5.6 G/DL (6.0-8.5)
[2016-07-25 11:26] LABS: ALKALINE PHOSPHATASE 110 U/L (45-117); BUN (BLOOD UREA NITROGEN) 28 MG/DL (6-23); CALCIUM, SERUM 8.9 MG/DL (8.5-10.4); GLUCOSE, SERUM 241 MG/DL (60-99); TOTAL BILIRUBIN 3.3 MG/DL (0-1.2)
[2016-07-25 12:08] LABS: BAND NEUTROPHILS 11 %; BASOPHILS 1 %; EOSINOPHILS 5 %; EOSINOPHILS ABSOLUTE (CALC) 0.02 10/3/uL (0.0-0.53); LYMPHOCYTES 44 %; LYMPHOCYTES ABSOLUTE (CALC) 0.18 10/3/uL (0.67-4.30); METAMYELOCYTES 1 %; MONOCYTES 3 %; MONOCYTES ABSOLUTE (CALC) 0.01 10/3/uL (0.21-1.20); NEUTROPHILS ABSOLUTE (CALC) 0.18 10/3/uL (2.02-8.40); SEGMENTED NEUTROPHIL (0) 35 %; TOTAL NUCLEATED CELLS 100
[2016-07-25 12:09] LABS: POLYCHROMASIA 1+ (2-5/OIF) (0-1/OIF); TEARDROP SHAPED RBCS OCC (0-2/OIF)
[2016-07-25 12:14] LABS: HELMET CELLS OCC (0-2/OIF)
[2016-07-25 12:15] LABS: TOXIC GRANULATION SLT; VACUOLATED NEUTROPHILES OCC
[2016-07-26 05:25] LABS: HEMATOCRIT 24.5 % (36.0-48.0); HEMOGLOBIN 8.5 g/dL (12.0-16.0); MEAN CORPUS HGB CONC 34.7 g/dL (32.0-36.0); MEAN CORPUSCULAR HEMOGLOB 30.2 pg (26.0-34.0); MEAN CORPUSCULAR VOLUME 87.2 fL (80-100); PLATELET COUNT 24 10/3/uL (150-400); RBC DISTRIBUTION WIDTH 14.3 % (12.0-16.0); RED CELL COUNT 2.81 10/6/uL (4.0-5.6); WHITE BLOOD CELLS 0.5 10/3/uL (4.5-10.5)
[2016-07-26 05:28] LABS: MANUAL DIFF YES %
[2016-07-26 05:57] LABS: LYMPHOCYTES 51 %; LYMPHOCYTES ABSOLUTE (CALC) 0.26 10/3/uL (0.67-4.30); MONOCYTES 10 %; MONOCYTES ABSOLUTE (CALC) 0.05 10/3/uL (0.21-1.20); PLATELET ESTIMATE DEC (ADEQUATE); SEGMENTED NEUTROPHIL (0) 39 %; TOTAL NUCLEATED CELLS 100
[2016-07-26 05:58] LABS: RBC MORPHOLOGY NORM (NORMAL)
[2016-07-26 15:27] LABS: ASCORBIC ACID (UR NOT ORDER) NEG (NEG); BILIRUBIN, URINE NEGATIVE (NEG); KETONE, URINE NEGATIVE (NEG); LEUKOCYTE ESTERASE(NOT OR TRACE (NEG); WBC (NOT ORDERED) (RFLEX) 20 (0-5)
[2016-07-26 15:43] LABS: FOLATE 12.8 NG/ML (>5.2); ULTRASENSITIVE TSH 0.881 MCIU/ML (0.358-3.740)
[2016-07-26 16:02] LABS: PROCALCITONIN 0.71 ng/mL (<0.5)
[2016-07-26 16:32] LABS: C-REACTIVE PROTEIN 97.2 MG/L (<8.0); FREE T4 1.33 NG/DL (0.76-1.46); ULTRASENSITIVE TSH 0.916 MCIU/ML (0.358-3.740)
[2016-07-26 17:47] LABS: ACETONE NEG
[2016-07-27 08:38] LABS: MEAN CORPUS HGB CONC 33.2 g/dL (32.0-36.0); MEAN CORPUSCULAR HEMOGLOB 29.5 pg (26.0-34.0); RBC DISTRIBUTION WIDTH 14.3 % (12.0-16.0); RED CELL COUNT 2.37 10/6/uL (4.0-5.6)
[2016-07-27 08:39] LABS: HEMATOCRIT 21.1 % (36.0-48.0); MANUAL DIFF YES %; PLATELET COUNT 16 10/3/uL (150-400); WHITE BLOOD CELLS 0.3 10/3/uL (4.5-10.5)
[2016-07-27 09:12] LABS: BAND NEUTROPHILS 4 %; BASOPHILS 4 %; BASOPHILS ABSOLUTE (CALC) 0.01 10/3/uL (0.0-0.16); EOSINOPHILS 8 %; EOSINOPHILS ABSOLUTE (CALC) 0.02 10/3/uL (0.0-0.53); LYMPHOCYTES 44 %; LYMPHOCYTES ABSOLUTE (CALC) 0.13 10/3/uL (0.67-4.30); MONOCYTES 16 %; MONOCYTES ABSOLUTE (CALC) 0.05 10/3/uL (0.21-1.20); NEUTROPHILS ABSOLUTE (CALC) 0.08 10/3/uL (2.02-8.40); RBC MORPHOLOGY NORM (NORMAL); SEGMENTED NEUTROPHIL (0) 24 %; TOTAL NUCLEATED CELLS 100
[2016-07-27 09:22] LABS: BUN (BLOOD UREA NITROGEN) 31 MG/DL (6-23); CALCIUM, SERUM 8.4 MG/DL (8.5-10.4); CHLORIDE, SERUM 112 MMOL/L (96-112); CO2 (CARBON DIOXIDE) 24 MMOL/L (24-34); CREATININE 0.87 MG/DL (0.55-1.02); GFR AFRICAN AMERICAN 81 ML/MIN (>=60); GFR NON AFRICAN AMERICAN 70 ML/MIN (>=60); GLUCOSE, SERUM 212 MG/DL (60-99); POTASSIUM, SERUM 4.1 MMOL/L (3.5-5.3); SODIUM, SERUM 142 MMOL/L (135-148)
[2016-07-28 05:16] LABS: HEMATOCRIT 22.1 % (36.0-48.0); HEMOGLOBIN 7.7 g/dL (12.0-16.0); MEAN CORPUS HGB CONC 34.8 g/dL (32.0-36.0); MEAN CORPUSCULAR HEMOGLOB 30.9 pg (26.0-34.0); MEAN CORPUSCULAR VOLUME 88.8 fL (80-100); RBC DISTRIBUTION WIDTH 14.6 % (12.0-16.0); RED CELL COUNT 2.49 10/6/uL (4.0-5.6)
[2016-07-28 05:20] LABS: PLATELET COUNT 17 10/3/uL (150-400); WHITE BLOOD CELLS 0.4 10/3/uL (4.5-10.5)
[2016-07-28 05:21] LABS: MANUAL DIFF YES %
[2016-07-28 05:31] LABS: BUN (BLOOD UREA NITROGEN) 31 MG/DL (6-23); CALCIUM, SERUM 8.1 MG/DL (8.5-10.4); CHLORIDE, SERUM 115 MMOL/L (96-112); CO2 (CARBON DIOXIDE) 23 MMOL/L (24-34); CREATININE 0.85 MG/DL (0.55-1.02); GFR AFRICAN AMERICAN 83 ML/MIN (>=60); GFR NON AFRICAN AMERICAN 72 ML/MIN (>=60); GLUCOSE, SERUM 212 MG/DL (60-99); POTASSIUM, SERUM 4.3 MMOL/L (3.5-5.3); SODIUM, SERUM 144 MMOL/L (135-148)
[2016-07-28 07:21] LABS: BAND NEUTROPHILS 5 %; EOSINOPHILS 5 %; EOSINOPHILS ABSOLUTE (CALC) 0.02 10/3/uL (0.0-0.53); LYMPHOCYTES 30 %; LYMPHOCYTES ABSOLUTE (CALC) 0.12 10/3/uL (0.67-4.30); MONOCYTES 5 %; MONOCYTES ABSOLUTE (CALC) 0.02 10/3/uL (0.21-1.20); NEUTROPHILS ABSOLUTE (CALC) 0.24 10/3/uL (2.02-8.40); SEGMENTED NEUTROPHIL (0) 55 %; TOTAL NUCLEATED CELLS 100
[2016-07-28 07:22] LABS: PLATELET ESTIMATE DEC (ADEQUATE); RBC MORPHOLOGY NORM (NORMAL)
[2016-07-29 04:46] LABS: HEMATOCRIT 22.8 % (36.0-48.0); HEMOGLOBIN 7.5 g/dL (12.0-16.0); MEAN CORPUSCULAR HEMOGLOB 30.2 pg (26.0-34.0); RBC DISTRIBUTION WIDTH 14.7 % (12.0-16.0); RED CELL COUNT 2.48 10/6/uL (4.0-5.6)
[2016-07-29 04:47] LABS: MANUAL DIFF YES %; MEAN CORPUS HGB CONC 32.9 g/dL (32.0-36.0); MEAN CORPUSCULAR VOLUME 91.9 fL (80-100); PLATELET COUNT 20 10/3/uL (150-400); WHITE BLOOD CELLS 0.5 10/3/uL (4.5-10.5)
[2016-07-29 05:11] LABS: CHLORIDE, SERUM 117 MMOL/L (96-112); CO2 (CARBON DIOXIDE) 24 MMOL/L (24-34); CREATININE 0.75 MG/DL (0.55-1.02); GFR AFRICAN AMERICAN 97 ML/MIN (>=60); GFR NON AFRICAN AMERICAN 84 ML/MIN (>=60); POTASSIUM, SERUM 4.2 MMOL/L (3.5-5.3); SODIUM, SERUM 147 MMOL/L (135-148); VANCOMYCIN TROUGH 22.5 MCG/ML (10.0-20.0)
[2016-07-29 05:12] LABS: BUN (BLOOD UREA NITROGEN) 25 MG/DL (6-23); GLUCOSE, SERUM 137 MG/DL (60-99)
[2016-07-29 07:07] LABS: EOSINOPHILS 4 %; EOSINOPHILS ABSOLUTE (CALC) 0.02 10/3/uL (0.0-0.53); LYMPHOCYTES 56 %; LYMPHOCYTES ABSOLUTE (CALC) 0.28 10/3/uL (0.67-4.30); MONOCYTES 4 %; MONOCYTES ABSOLUTE (CALC) 0.02 10/3/uL (0.21-1.20); NEUTROPHILS ABSOLUTE (CALC) 0.18 10/3/uL (2.02-8.40); SEGMENTED NEUTROPHIL (0) 36 %; TOTAL NUCLEATED CELLS 25
[2016-07-29 07:08] LABS: POLYCHROMASIA 1+ (2-5/OIF) (0-1/OIF)
[2016-07-30 05:04] LABS: BUN (BLOOD UREA NITROGEN) 21 MG/DL (6-23); CALCIUM, SERUM 8.1 MG/DL (8.5-10.4); CHLORIDE, SERUM 117 MMOL/L (96-112); CO2 (CARBON DIOXIDE) 23 MMOL/L (24-34); CREATININE 0.75 MG/DL (0.55-1.02); GFR AFRICAN AMERICAN 97 ML/MIN (>=60); GFR NON AFRICAN AMERICAN 84 ML/MIN (>=60); GLUCOSE, SERUM 143 MG/DL (60-99); POTASSIUM, SERUM 4.2 MMOL/L (3.5-5.3); SODIUM, SERUM 146 MMOL/L (135-148)
[2016-07-30 05:07] LABS: HEMATOCRIT 23.3 % (36.0-48.0); HEMOGLOBIN 7.6 g/dL (12.0-16.0); MEAN CORPUS HGB CONC 32.6 g/dL (32.0-36.0); MEAN CORPUSCULAR VOLUME 92.1 fL (80-100); RBC DISTRIBUTION WIDTH 14.8 % (12.0-16.0); RED CELL COUNT 2.53 10/6/uL (4.0-5.6)
[2016-07-30 05:08] LABS: MANUAL DIFF YES %; PLATELET COUNT 20 10/3/uL (150-400); WHITE BLOOD CELLS 0.6 10/3/uL (4.5-10.5)
[2016-07-30 05:29] LABS: LYMPHOCYTES 50 %; MONOCYTES 4 %; MONOCYTES ABSOLUTE (CALC) 0.02 10/3/uL (0.21-1.20); NEUTROPHILS ABSOLUTE (CALC) 0.28 10/3/uL (2.02-8.40); RBC MORPHOLOGY NORM (NORMAL); SEGMENTED NEUTROPHIL (0) 46 %; TOTAL NUCLEATED CELLS 100
[2016-07-30] MEDS ORDERED: MONODOX100 MG PO (13:56)
[2016-07-30] MEDS ORDERED: SEROQUEL25 PO (13:57)
== END 2016-07-30 19:00 | disposition home health service (06) | DRG 871 ==
LOC: 4EA 09:28
PROVIDERS: Internal Medicine; Internal Medicine Hematology & Oncology; Nurse Practitioner
PROC: 30233N1 Transfusion of Nonautologous Red Blood Cells into Peripheral Vein, Percutaneous Approach (ICD-10-PCS; principal; 2016-07-25)
PROC: 30233R0 Transfusion of Autologous Platelets into Peripheral Vein, Percutaneous Approach (ICD-10-PCS; 2016-07-26)
DX: A41.9 Sepsis, unspecified organism (principal); G93.41 Metabolic encephalopathy; D61.818 Other pancytopenia; K74.60 Unspecified cirrhosis of liver; N39.0 Urinary tract infection, site not specified; D46.9 Myelodysplastic syndrome, unspecified; B96.1 Klebsiella pneumoniae [K. pneumoniae] as the cause of diseases classified elsewhere; E11.9 Type 2 diabetes mellitus without complications; G47.33 Obstructive sleep apnea (adult) (pediatric); I10 Essential (primary) hypertension; E78.5 Hyperlipidemia, unspecified; E03.9 Hypothyroidism, unspecified
CPT/HCPCS: 36415; 70553; 71010; 80048; 80053; 80202; 81001; 82009; 82140; 82330; 82533; 82607; 82746; 82962; 83605; 83970; 84145; 84439; 84443; 85025; 85652; 86140; 86850; 86900; 86901; 86920; 87040; 87077; 87086; 87186; 95816; 95819; 97161-GP; A9270-GY; A9577; C8929; G8978-CK-GP; G8979-CJ-GP; J0692; J1200; J1956; J2405; J2920; J3370; J3411; P9037; P9040; Q9957